=== PATIENT | male | born 1955 | race Caucasian/White ===

== ENCOUNTER 2018-06-20 08:38 | Emergency (ER) | payer OTHER ==
[2018-06-20 08:42] VITALS: BP 159/81; PULSE 67; TEMP 98.1; BMI 27.2
[2018-06-20] MEDS ORDERED: valACYclovir HCL 1000 MG TABLET PO ONE (08:58)
--- NOTE | 2018-06-20 08:58 | PDOC ---
History of Present Illness - General Chief Complaint: Rash Stated Complaint: PAINFUL RASH Time Seen by Provider: 06/20/18 08:40 History Source: Patient Exam Limitations: No Limitations - History of Present Illness Initial Comments: 06/20/18 08:52 62-year-old male here complaining of burning itching blistering rash started 5 days prior. Denies fevers or chills initially had a burning sensation that erupted into vesicular rash over his right posterior thorax and wrapping around the posterior right arm and right nipple line has been applying topical creams and gels to help with the pain and soaking in the tub with minimal relief was concerned that it may be getting worse and so sought for evaluation states the pain is currently tolerable Past History - Past Medical History Allergies/Adverse Reactions: Allergies Allergy/AdvReac Type Severity Reaction Status Date / Time No Known Allergies Allergy Verified 06/20/18 08:39 Home Medications: Ambulatory Orders Ibuprofen [Motrin -] 600 mg PO TID PRN #90 tablet MDD 3 06/20/18 Valacyclovir HCl [Valtrex] 1,000 mg PO TID 7 Days #21 tablet MDD 3 06/20/18 Cancer: Yes (BLADDER CA) COPD: No HTN: Yes (WAS ON MICARDIS) - Suicide/Smoking/Psychosocial Hx Smoking History: Former smoker Have you smoked in the past 12 months: No Information on smoking cessation initiated: No Hx Alcohol Use: Yes Drug/Substance Use Hx: No Substance Use Type: Alcohol Review of Systems - Review of Systems Constitutional: No: Chills, Fever, Weakness Respiratory: No: Cough, Orthopnea, Shortness of Breath Cardiac (ROS): No: Chest Pain Integumentary: Yes: Lesions, Rash All Other Systems: Reviewed and Negative *Physical Exam - Vital Signs Last Vital Signs Temp Pulse Resp BP Pulse Ox 98.1 F 67 18 159/81 100 06/20/18 08:39 06/20/18 08:39 06/20/18 08:39 06/20/18 08:39 06/20/18 08:39 - Physical Exam General Appearance: Yes: Appropriately Dressed Respiratory/Chest: positive: Lungs Clear, Normal Breath Sounds Cardiovascular: positive: Regular Rhythm, Regular Rate, S1, S2 Gastrointestinal/Abdominal: positive: Normal Bowel Sounds, Flat, Soft. negative : Tender Musculoskeletal: positive: Normal Inspection Integumentary: positive: Other (vesicular rash t4 dermatome right , some crusting. zoster like) Medical Decision Making - Medical Decision Making 06/20/18 08:54 recommend motrin for pain, valcyclovir tid, and followup pcp. *DC/Admit/Observation/Transfer Diagnosis at time of Disposition: Shingles - Discharge Dispostion Disposition: HOME Condition at time of disposition: Improved Decision to Admit order: No - Prescriptions Prescriptions: Ibuprofen [Motrin -] 600 mg PO TID PRN #90 tablet MDD 3 PRN Reason: Pain Valacyclovir HCl [Valtrex] 1,000 mg PO TID 7 Days #21 tablet MDD 3 - Referrals - Patient Instructions Printed Discharge Instructions: Herpes Zoster Vaccine, Shingles, Shingles ( Herpes Zoster) (Alternative Therapy) Additional Instructions: you should take valcyclovir 1 g three times daily x one week to shorten duration of rash which may last few weeks. you can take tylenol 500mg every 6 hrs as needed for pain or you can take ibuprofen 600 mg every 8 hrs as needed take with food. follow up with your regular doctor. - Post Discharge Activity
[2018-06-20] MEDS ORDERED: valACYclovir HCL 500 MG TABLET (FP) ONE (09:01)
== END 2018-06-20 09:10 | disposition home or self-care (01) ==
LOC: FER 08:38
DX: B02.9 Zoster without complications (principal); I10 Essential (primary) hypertension; Z85.51 Personal history of malignant neoplasm of bladder; Z87.891 Personal history of nicotine dependence
CPT/HCPCS: 99281-25